=== PATIENT | female | born 1940 | race Caucasian/White ===

== ENCOUNTER → 2016-11-17 20:21 | Emergency (ER) | payer MEDICARE, OTHER ==
[~2016-11-17 20:21] MED LIST: ACET500CAP PO; ACIPHEX PO; ALLEGRA180 PO; CO Q-10100 MG PO; FOLIC PO; JANUMET1 TA1 PO; JANUMET1 TAB PO; LEXAPRO10 PO; LIPITOR40 PO; LORTAB 5 PO; METAMUCIL CAN7 OZ PO; METPAKSF PO; NEUPRO 2MG2 MG/24 HR TOP; NUPRO; SEPTRA DS1 TAB PO; VIT B PO; VITAMIN B-121000 MC1 SL; VITAMIN D31000 UNIT PO
== END | disposition home or self-care (01) ==
LOC: ER 20:21
DX: S32.019A Unspecified fracture of first lumbar vertebra, initial encounter for closed fracture (principal); K21.9 Gastro-esophageal reflux disease without esophagitis; F32.9 Major depressive disorder, single episode, unspecified; E11.9 Type 2 diabetes mellitus without complications; E78.5 Hyperlipidemia, unspecified; Z79.899 Other long term (current) drug therapy; W19.XXXA Unspecified fall, initial encounter
CPT/HCPCS: 72128; 72131; 99285; A9270-GY

== ENCOUNTER 2016-11-25 04:38 | Day surgery (SDC) | payer MEDICARE, OTHER ==
[2016-11-21 16:56] LABS: HEMATOCRIT 31.3 % (36.0-48.0); HEMOGLOBIN 9.5 g/dL (12.0-16.0)
[2016-11-21 17:12] LABS: BUN (BLOOD UREA NITROGEN) 23 MG/DL (6-23); CALCIUM, SERUM 9.1 MG/DL (8.5-10.4); CHLORIDE, SERUM 106 MMOL/L (96-112); CO2 (CARBON DIOXIDE) 27 MMOL/L (24-34); CREATININE 1.23 MG/DL (0.55-1.02); GFR AFRICAN AMERICAN 49 ML/MIN (>=60); GFR NON AFRICAN AMERICAN 43 ML/MIN (>=60); GLUCOSE, SERUM 111 MG/DL (60-99); POTASSIUM, SERUM 5.5 MMOL/L (3.5-5.3); SODIUM, SERUM 142 MMOL/L (135-148)
--- NOTE | ~2016-11-25 | OP ---
Record Of Operation [facility] [address] [place]. [address] NAME: TUYET LEE : 40 STATUS : [facility]#: [id number] AGE: 76 ADM/REG DATE : 11/25/16 MR#: [id number] REPORT SERV DATE: 11/26/16 DICTATED BY: CHILO OSBORN DATE: 11/25/16 REPORT STATUS : Draft TRANSCRIBED BY: MODL DATE: 11/25/16 DATE OF PROCEDURE: 11/25/2016 PREOPERATIVE DIAGNOSIS: L1 compression fracture. POSTOPERATIVE DIAGNOSIS: L1 compression fracture. PROCEDURE: Navigation-assisted L1 kyphoplasty. LOSS CONTROL REPRESENTATIVE: Kishore Irwin. ANESTHESIA: General. BLOOD LOSS: Less than 10 mL. INDICATIONS FOR SURGERY: A 76-year-old female with severe back pain following a fall. She had an x-ray showing a compression fracture of L1. MRI confirmed this was an acute compression fracture. She was given options of pain medication and bracing versus kyphoplasty. The pain was so intractable and she was having such a difficult time that she wanted to proceed with kyphoplasty. I have gone over the risks, which included but not limited to infection, there could be cement extravasation that could result in pulmonary or cardiovascular collapse that could result in . There can also be cement extravasation that could result in nerve injury or paralysis. There could be hematoma that could lead to paralysis, neurologic injury, and dural tear, etc. is always possible. Medical complications including infection, UTI, PE, pneumonia, DC, CVA etc., was noted. Also, there is always a risk of adjacent segment fractures. Consent form was signed. DESCRIPTION OF PROCEDURE: The patient was identified in the preop holding area, brought to the operative suite. General anesthetic including endotracheal intubation was administered. She was placed prone on a Kenrick spine frame. Bony prominences were carefully padded. Thoracolumbar spine was scrubbed with Hibiclens solution, DuraPrep was painted, and sterile drapes applied. A small stab wound was carried out over the right posterosuperior iliac spine. A percutaneous pin with navigational frame attached was inserted in the PSIS. Intraoperative CT scan with O-arm was obtained, CT information was used to register the navigational system. When we initially tried to place the navigational system, there was an error in navigation and thus we did not use the navigation to pass cannulas. A sterilely draped C-arm was brought to the operative suite and under fluoroscopy, we passed a kyphoplasty cannula across the pedicle of L1, left and right side. Once the cannula was in proper position and the posterior part of the vertebral body, the obturators were removed. A drill was placed through the cannula and a balloon was inserted, inflated and deflated, creating a bone void. This was followed by placement of a total of 4 mL of polymethylmethacrylate, 2 mL on each side. This was all done under continuous C-arm. It allowed visualization, and no Record Of Operation [facility] [address] [place]. [address] NAME: TUYET LEE : 40 STATUS : [facility]#: [id number] AGE: 76 ADM/REG DATE : 11/25/16 MR#: [id number] REPORT SERV DATE: 11/26/16 DICTATED BY: CHILO OSBORN DATE: 11/25/16 REPORT STATUS : Draft TRANSCRIBED BY: MODL DATE: 11/25/16 extravasation etc. was found. The cannulas were removed. The intraoperative AP and lateral final x-rays showed excellent position of all cement. There was no extravasation or abnormality. Sterile dressings were applied. The patient was returned to the supine position, awakened, and taken to recovery room in satisfactory condition having tolerated the procedure well. Sponge, needle, and instrument counts were correct. No intraoperative complications noted. GUI/LAURA Chilo Osborn D.O. / [id number] CC: Shirley Torrez D.O.
== END 2016-11-25 15:15 | disposition home or self-care (01) ==
LOC: SDC 04:38
PROVIDERS: Orthopaedic Surgery Orthopaedic Surgery of the Spine
PROC: 0QU03JZ Supplement Lumbar Vertebra with Synthetic Substitute, Percutaneous Approach (ICD-10-PCS; 2016-11-25)
PROC: 0QS03ZZ Reposition Lumbar Vertebra, Percutaneous Approach (ICD-10-PCS; principal; 2016-11-25 05:45)
DX: S32.019A Unspecified fracture of first lumbar vertebra, initial encounter for closed fracture (principal); E11.9 Type 2 diabetes mellitus without complications; K21.9 Gastro-esophageal reflux disease without esophagitis; D64.9 Anemia, unspecified; F41.9 Anxiety disorder, unspecified; M19.90 Unspecified osteoarthritis, unspecified site; W19.XXXA Unspecified fall, initial encounter; Z96.643 Presence of artificial hip joint, bilateral; Z90.710 Acquired absence of both cervix and uterus; Z90.49 Acquired absence of other specified parts of digestive tract; Z98.890 Other specified postprocedural states; Z79.899 Other long term (current) drug therapy
CPT/HCPCS: 36415; 80048; 82962; 85014; 85018; 93005; A9270-GY; C1726; J2250; J2270; J2405; J2710; J3010; Q9967